=== PATIENT | female | born 1970 | race Caucasian/White ===

== ENCOUNTER 2020-02-17 18:13 | Emergency (ER) | payer OTHER ==
[2020-02-17] MEDS ORDERED: PHENAZOPYRIDINE HCL 100 MG TABLET (FP) PO ONE (18:28)
[2020-02-17 18:29] VITALS: BP 130/83; PULSE 66; TEMP 98.6; BMI 18.7
[2020-02-17] MEDS ORDERED: PHENAZOPYRIDINE HCL 100 MG TABLET (FP) ONE (18:32)
[2020-02-17] MEDS ORDERED: NITROFURANTOIN MACROCRYSTAL 50 MG CAPSULE (FP) PO SCH (18:45)
[2020-02-17 18:49] LABS: EPITHELIAL CELLS RARE /hpf
[2020-02-17] MEDS ORDERED: NITROFURANTOIN MACROCRYSTAL 50 MG CAPSULE (FP) ONE (18:52)
== END 2020-02-17 19:00 | disposition home or self-care (01) ==
LOC: FER 18:13
DX: N39.0 Urinary tract infection, site not specified (principal)
CPT/HCPCS: 81003; 81015; 84703; 87077; 87086; 99283-25

== ENCOUNTER 2023-11-25 15:37 | Emergency (ER) | payer OTHER ==
[2023-11-25 16:16] VITALS: BP 102/61; PULSE 63; RESP 18; TEMP 97.3; BMI 18.8
[2023-11-25 17:06] LABS: EPITHELIAL CELLS 0-5 /hpf
== END 2023-11-25 16:29 | disposition home or self-care (01) ==
LOC: FER 15:37
DX: N39.0 Urinary tract infection, site not specified (principal); R30.0 Dysuria; R10.30 Lower abdominal pain, unspecified
CPT/HCPCS: 81003; 81015; 87086; 87186; 99283-25